=== PATIENT | female | born 1965 | race Caucasian/White ===

== ENCOUNTER → 2017-02-21 | Outpatient (CLI) | payer MEDICARE, OTHER ==
[~2017-02-21] MED LIST: AMIT50 PO; BACL10TA PO; BACT800T5 PO; CLON0.5T PO; CYMB60CA PO; LEVO.025 PO; NEUR600T PO; SIMV20 PO
--- NOTE | 2017-02-21 14:34 | EKG ---
Date Performed: 02/21/2017 Time Performed: 13:37:45 PTAGE: 51 years EKG: BASELINE ARTIFACT PRESENT. Sinus rhythm INDETERMINATE AXIS POSSIBLE RIGHT VENTRICULAR CONDUCTION DELAY BORDERLINE ECG NO SIGNIFICANT CHANGE FROM PRIOR ELECTROCARDIOGRAM. PREVIOUS TRACING : 03/21/2015 11.47 DOCTOR: Lucho Laboy Interpretating Date/Time 02/21/2017 14:33:47
--- NOTE | 2017-02-21 14:40 | RADRPT ---
EXAM DATE/TIME: 02/21/2017 14:02 [place] COMPARISON: No previous studies available for comparison. INDICATIONS : Evaluate for pneumonia, pneumothorax, or communicable diseases. Pre op hip surgery. MEDICAL HISTORY : Osteomyelitis SURGICAL HISTORY : None. ENCOUNTER: Initial ACUITY: 1 day PAIN SCORE: 0/10 LOCATION: Bilateral chest FINDINGS: A left subclavian [id number] has its tip in the superior vena cava. There is no pneumothorax. Th e heart is normal. The pulmonary vascular pattern is normal. The lungs are clear. Hardware is noted within the upper thoracic spine. CONCLUSION: No acute cardiopulmonary disease. Juan Luis Page MD on February 21, 2017 at 14:23 Board Certified Radiologist. This report was verified electronically.
== END ==
LOC: HCAV 13:10
PROVIDERS: ATTEND Family Medicine
DX: Z01.818 Encounter for other preprocedural examination (principal); R94.31 Abnormal electrocardiogram [ECG] [EKG]
CPT/HCPCS: 71020; 93005

== ENCOUNTER 2017-08-28 21:08 | Emergency (ER) | payer MEDICARE ==
[~2017-08-28] VITALS: Ht 172.7 cm; Wt 56.5 kg
[2017-08-28 21:09] VITALS: BP 101/66; PULSE 86; RESP 16; TEMP 97.9; O2SAT 95
--- NOTE | 2017-08-28 22:07 | PD ---
HPI Chief Complaint: Complaint Time Seen by Provider: 22:02 Travel History International Travel<30 days: No Contact w/Intl Traveler<30days: No Traveled to known affect area: No History of Present Illness HPI 51-year-old female with history of paraplegia, neurogenic bladder, here for evaluation because her Ridley catheter was accidentally pulled out today while being transferred from her chair to a car. Balloon remained inflated after the Ridley was pulled out. She denies any pain. No bleeding. She has had the Ridley since 2004. PFSH Past Medical History Anemia: Yes Anxiety: Yes Depression: Yes Cancer: No Cardiovascular Problems: No High Cholesterol: Yes Diabetes: No Diminished Hearing: No Endocrine: Yes Gastrointestinal Disorders: Yes GERD: Yes Genitourinary: Yes (NEUROGENIC BLADDER, RIDLEY CATH) Hepatitis: Yes (C) Hiatal Hernia: No Hypertension: Yes Immune Disorder: No Musculoskeletal: Yes (NECK/BACK PAIN) Neurologic: Yes (PARAPLEGIC (DUE TO MRSA HX)) Psychiatric: Yes Reproductive: No Respiratory: No Integumentary: Yes (INFECTED WOUNDS, MRSA.) Immunizations Current: Yes Thyroid Disease: Yes (HYPOTHYROIDISM) ?: Not Menopausal: Yes : 3 Para: 1 Miscarriage: 2 Past Surgical History Abdominal Surgery: Yes (COLOSTOMY) AICD: No Body Medical Devices: CERVICAL HARDWARE, CHEMOPORT Joint Replacement: No Neurologic Surgery: Yes (ANTERIOR CERVICAL FUSION 5,6,7) Pacemaker: No Other Surgery: Yes Social History Alcohol Use: No Tobacco Use: Yes (1/2 PPD) Substance Use: No Allergies-Medications (Allergen,Severity, Reaction): Coded Allergies: *MDRO Multi-Drug Resistant Organism (Verified Allergy, Unknown, 08/28/17) MRSA Acinetobacter baumannii Reported Meds & Prescriptions Reported Meds & Active Scripts Active Bactrim DS (Sulfamethoxazole-Trimethoprim DS) 1 Tab Tab 1 Tab PO BID Reported Lioresal (Baclofen) 10 Mg Tab 10 Mg PO TID Simvastatin 20 mg (Simvastatin) 20 Mg Tab 1 Tab PO HS Elavil 50 Mg Tab (Amitriptyline HCl) 50 Mg Tab 100 Mg PO HS Clonazepam 0.5 Mg Tab 0.5 Mg PO BID Levothyroxine 25 mcg (Levothyroxine Sodium) 25 Mcg Tab 25 Mcg PO DAILYAC Neurontin (Gabapentin) 600 Mg Tab 1,200 Mg PO TID Cymbalta (Duloxetine HCl) 60 Mg Cap 60 Mg PO DAILY Review of Systems Except as stated in HPI: all other systems reviewed are Neg Physical Exam Narrative GENERAL: Well-developed, well-nourished, comfortable, no apparent distress. SKIN: Focused skin assessment warm/dry. HEAD: Atraumatic. Normocephalic. EYES: Pupils equal and round. No scleral icterus. No injection or drainage. ENT: Mucous membranes pink and moist. NECK: Trachea midline. No JVD. CARDIOVASCULAR: Regular rate and rhythm. RESPIRATORY: No accessory muscle use. Mild end expiratory wheeze on the right. Breath sounds equal bilaterally. GASTROINTESTINAL: Abdomen soft, non-tender, nondistended. Colostomy bag over the right mid abdomen. MUSCULOSKELETAL: No obvious deformities. No clubbing. No cyanosis. No edema. NEUROLOGICAL: Awake and alert. No obvious cranial nerve deficits. Motor grossly within normal limits. Normal speech. PSYCHIATRIC: Appropriate mood and affect; insight and judgment normal. Data Data Last Documented VS Vital Signs Date Time Temp Pulse Resp B/P (MAP) Pulse Ox O2 Delivery O2 Flow Rate FiO2 08/28/17 21:09 97.9 86 16 101/66 (78) 95 Room Air Orders Orders Urinary Catheter Insert/Apply (08/28/17 22:04) [facility] Medical Decision Making Medical Screen Exam Complete: Yes Emergency Medical Condition: Yes Differential Diagnosis Dislodged Ridley catheter. Narrative Course Ridley catheter replaced. Patient will be discharged with outpatient follow-up with her primary care physician this week. Diagnosis Primary Impression: Dislodged Ridley catheter Qualified Codes: T83.021A - Displacement of indwelling urethral catheter, initial encounter Referrals: Primary Care Physician 3 days Additional Instructions: Follow-up with your primary care physician this week. Return to the emergency department for worsening symptoms or any other concerns. Disposition: 01 DISCHARGE HOME Condition: Stable Jaziel Valadez MD Aug 28, 2017 22:07
== END 2017-08-28 22:53 | disposition home or self-care (01) ==
LOC: NEPE 21:08
DX: T83.021A Displacement of indwelling urethral catheter, initial encounter (principal); G82.20 Paraplegia, unspecified; N31.9 Neuromuscular dysfunction of bladder, unspecified; D64.9 Anemia, unspecified; F41.9 Anxiety disorder, unspecified; E78.00 Pure hypercholesterolemia, unspecified; K21.9 Gastro-esophageal reflux disease without esophagitis; E03.9 Hypothyroidism, unspecified; F17.200 Nicotine dependence, unspecified, uncomplicated
CPT/HCPCS: 51702